=== PATIENT | male | born 1950 | race Caucasian/White ===

== ENCOUNTER 2016-07-05 12:25 | Emergency (ER) | payer OTHER ==
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
--- NOTE | 2016-07-05 13:22 | ED ORDER SUMMARY ---
..... Patient: ASTRID BARKLEY OrderSheet [facility] VisitID: [id number] [address] [place] [address] 66y, M Registration Date/Time: 07/05/2016 ORDER SHEET Weight: 111.5 kg (stated) Allergies: Sulfa Antibiotics GENERAL ORDERS: Lumbar Spine 2 or 3V Urgent (12:40 07/05/2016 Darrius HARMAN) (Ack 12:45 LNations ER Tech1) (13:04 Yelena Solorio) MEDICATION ORDERS: IV FLUIDS: ORDER SHEET NOTES: [Electronically signed by Eugenio Allen R.N. (16:18 07/05/2016)] [Electronically signed by La Quiñonez MD (09:58 07/13/2016)] [Electronically locked/signed by Eugenio Allen R.N. (16:18 07/05/2016)]
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
--- NOTE | 2016-07-05 13:22 | ED ORDER SUMMARY ---
..... Patient: ASTRID BARKLEY OrderSheet [facility] VisitID: [id number] [address] [place] [address] 66y, M Registration Date/Time: 07/05/2016 ORDER SHEET Weight: 111.5 kg (stated) Allergies: Sulfa Antibiotics GENERAL ORDERS: Lumbar Spine 2 or 3V Urgent (12:40 07/05/2016 Darrius HARMAN) (Ack 12:45 LNations ER Tech1) (13:04 Yelena Solorio) MEDICATION ORDERS: IV FLUIDS: ORDER SHEET NOTES: [Electronically signed by Eugenio Allen R.N. (16:18 07/05/2016)] [Electronically signed by La Quiñonez MD (09:58 07/13/2016)] [Electronically locked/signed by Eugenio Allen R.N. (16:18 07/05/2016)]
--- NOTE | 2016-07-13 09:58 | ED MAR SUMMARY ---
..... Medication Administration Record [facility] [address], [place] [id number] Patient: ASTRID BARKLEY Visit ID: [id number] 66y, M Weight: 111.5 kg Height/Length: 72 in BMI: 33.4 ALLERGIES: Sulfa Antibiotics
--- NOTE | 2016-07-13 09:58 | ED MAR SUMMARY ---
..... Medication Administration Record [facility] [address] [place], [place] [id number] Patient: ASTRID BARKLEY Visit ID: [id number] 66y, M Weight: 111.5 kg Height/Length: 72 in BMI: 33.4 ALLERGIES: Sulfa Antibiotics
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
--- NOTE | 2016-07-13 09:58 | ED MED RECONCILIATION SUMMARY ---
Patient: ASTRID BARKLEY Medication Reconciliation Report [facility] VisitID: [id number] [address] [place] [address] 66y, M Registration Date/Time: 07/05/2016 Weight: 111.5 kg Height/Length: 72 in. BMI: 33.4 ALLERGIES: Sulfa Antibiotics The patient's Home Medications are listed below: CONTINUE TAKING THE FOLLOWING MEDICATIONS: Lisinopril Oral MetFORMIN HCl Oral Metoprolol Tartrate Oral The source(s) of the original Home Medication information: Not obtained. The following Medications were given to the patient in the Emergency Department: None. The following Medications were prescribed to the patient: None.
--- NOTE | 2016-07-13 09:58 | ED MED RECONCILIATION SUMMARY ---
Patient: ASTRID BARKLEY Medication Reconciliation Report [facility] VisitID: [id number] [address] [place] [address] 66y, M Registration Date/Time: 07/05/2016 Weight: 111.5 kg Height/Length: 72 in. BMI: 33.4 ALLERGIES: Sulfa Antibiotics The patient's Home Medications are listed below: CONTINUE TAKING THE FOLLOWING MEDICATIONS: Lisinopril Oral MetFORMIN HCl Oral Metoprolol Tartrate Oral The source(s) of the original Home Medication information: Not obtained. The following Medications were given to the patient in the Emergency Department: None. The following Medications were prescribed to the patient: None.
== END 2016-07-05 13:53 | disposition home or self-care (01) ==
LOC: ED SRH 12:25 → EDSEX 12:26 → ED SRH 13:53
DX: S39.012A Strain of muscle, fascia and tendon of lower back, initial encounter (principal); Z79.899 Other long term (current) drug therapy; V43.52XA Car driver injured in collision with other type car in traffic accident, initial encounter; Y93.89 Activity, other specified; Y99.9 Unspecified external cause status; Y92.9 Unspecified place or not applicable; E78.00 Pure hypercholesterolemia, unspecified; I10 Essential (primary) hypertension; E11.9 Type 2 diabetes mellitus without complications; Z79.84 Long term (current) use of oral hypoglycemic drugs